=== PATIENT | female | born 1975 | race Caucasian/White ===

== ENCOUNTER 2021-08-07 20:26 | Emergency (ER) | payer MEDICAID, SELFPAY ==
[2021-08-07 20:27] VITALS: BP 160/78; PULSE 87; RESP 18; TEMP 36.6; O2SAT 98; BMI 27.4
--- NOTE | 2021-08-07 20:39 | EDS_ITS ---
HPI History of Present Illness Chief Complaint: Nausea/Vomiting Informant: patient Onset/Context/Timing Onset: Weeks Current Severity: Mild Maximum Severity: Mild Narrative Narrative: Patient presents secondary to nausea and vomiting. She states has had nausea and vomiting for the past 3 weeks. She has been at [facility] for residential treatment of drug and alcohol abuse for the past 2-1/2 weeks. She had been on Zofran but states the facility stopped giving it to her claiming it was a stimulant. She has been vomiting constantly since lunchtime. She denies focal abdominal pain but she does states her abdomen feels nauseous. [facility] Medical History COPD (chronic obstructive pulmonary disease) Home Medications cariprazine [Vraylar] 4.5 mg PO DAILY 08/07/21 [History Last Taken Unknown] lamotrigine 100 mg PO BID 08/07/21 [History Last Taken Unknown] ondansetron 4 mg PO Q8H PRN #10 tab 08/07/21 [Rx Last Taken Unknown] trazodone 100 mg PO QHS 08/07/21 [History Last Taken Unknown] vortioxetine [Trintellix] 10 mg PO DAILY 08/07/21 [History Last Taken Unknown] Allergy/AdvReac Type Severity Reaction Status Date / Time prochlorperazine AdvReac Other Verified 08/07/21 20:30 [From Compazine] Surgical History Tubal ligation status Social History Smoking Status: Current every day smoker tobacco type: cigarettes ROS ROS ED Constitutional Constitutional ED: Denies chills or fever(s) Eyes Eyes: Denies change in vision ENT ENT ED: Denies sore throat Cardiovascular Cardiovascular: Denies chest pain Respiratory/Chest Respiratory/Chest: Denies cough or dyspnea Gastrointestinal Gastrointestinal: Reports nausea and vomiting; Denies abdominal pain or diarrhea Genitourinary Genitourinary ED: Denies dysuria Musculoskeletal Musculoskeletal: Denies back pain Integumentary Denies rash Neurologic Neurologic: Denies headache(s) or weakness Allergic/Immunologic Allergic/Immunologic ED: Denies urticaria EXAM Physical Exam Const Vital Signs: 08/07/21 20:27 Temperature 97.9 F Temperature Source Temporal Pulse Rate 87 Respiratory Rate 18 Blood Pressure 160/78 H Blood Pressure Mean 105 Pulse Ox 98 Oxygen Delivery Method Room Air Positive well nourished and well developed General Appearance ED: well developed HEENT Reports moist mucous membranes Eyes PERRL and EOMs intact bilaterally Neck supple Chest Wall inspection of chest normal and palpation of chest normal Resp normal respiratory effort and clear to auscultation bilaterally Cardio regular rate and regular rhythm GI non-tender Auscultation: hypoactive bowel sounds Palpation: soft Extremity normal to inspection Neuro oriented x3 Sensorium / Orientation: alert Psych mental status grossly normal Skin no rashes or lesions noted MDM MDM MDM Narrative Medical decision making narrative: Patient is given IV fluids and Zofran. Lab work obtained. Lab Data Attestation: I reviewed the patient's lab results. Labs: Laboratory Results - last 24 hr 08/07/21 08/07/21 08/07/21 20:48 20:48 20:48 WBC 10.4 RBC 4.98 Hgb 14.9 Hct 44.2 MCV 88.8 MCH 29.9 MCHC 33.7 RDW Std Deviation 43.4 RDW Coeff of Neha 13.3 Plt Count 273 MPV 9.0 Immature Gran % (Auto) 0.400 Neut % (Auto) 71.1 H Lymph % (Auto) 19.5 [place] % (Auto) 6.8 Eos % (Auto) 1.8 Baso % (Auto) 0.4 Absolute Neuts (auto) 7.4 Absolute Lymphs (auto) 2.02 Nucleated RBC % 0 Sodium 140 Potassium 4.1 Chloride 105 Carbon Dioxide 30.0 Anion Gap 5 BUN 10 Creatinine 1.02 Estim Creat Clear Calc 53.93 Est GFR (MDRD) Af Amer 74 Est GFR (MDRD) Non-Af 62 BUN/Creatinine Ratio 9.8 L Glucose 126 H Calcium 9.7 Total Bilirubin 0.40 Direct Bilirubin 0.12 AST 14 L ALT 23 Alkaline Phosphatase 93 Total Protein 7.5 Albumin 3.8 Globulin 3.7 Lipase 303 Serum , Qual NEGATIVE Treatment and Re-Evaluation Narrative: Lab work is unremarkable including normal LFTs and lipase. test negative. On repeat evaluation patient is feeling significantly improved and drinking a can of Coke. I attempted to contact patient navigator at 180 to determine why patient was not able to have Zofran. No one is calling me back. I agree that this would probably be the best medication for her to control her symptoms. I will write her prescription for Zofran. She understands that they may or may not let her take it at the facility. I did advise her that her body is currently going through a lot of changes right now with the detox program. This may just be an effect of all the changes that she is going through. If she continues to have symptoms as her detox progresses she may need to see GI specialist. Discharge Plan Triage Chief Complaint: Nausea/Vomiting ED Provider: Lizzeth Oneal Dx/Rx/DC Orders Clinical Impression: Nausea & vomiting Instructions: ED Vomiting (Adult) Prescriptions: New ondansetron 4 mg tablet,disintegrating 4 mg PO Q8H PRN (Reason: nausea and vomiting) Qty: 10 RF: 0 No Action trazodone 100 mg tablet 100 mg PO QHS RF: 0 lamotrigine 100 mg tablet 100 mg PO BID RF: 0 Trintellix 10 mg Tablet 10 mg PO DAILY RF: 0 Vraylar 4.5 mg Capsule 4.5 mg PO DAILY RF: 0 Disposition Disposition: Home, Self Care
[2021-08-07] MEDS: 0.9% Normal Saline 1,000 ML 1000 ML IV (20:48)
[2021-08-07] MEDS: Ondansetron 4 MG/2 ML Vial IV (20:48)
[2021-08-07 20:54] LABS: Absolute Lymphocyte Count 2.02 X10^3/uL (0.83-4.51); Absolute Neutrophil Count 7.4 X10^3/uL (2.0-7.7); Basophil# 0.04 X10^3/uL; Basophil% 0.4 % (0-1); Eosinophil# 0.19 X10^3/uL; Eosinophils% 1.8 % (0-5); Hematocrit 44.2 % (37-47); Hemoglobin 14.9 g/dL (12.0-15.0); Lymphocyte # 2.02 X10^3/ul (0.83-4.51); Lymphocyte % 19.5 % (19-41); Mean Corp Hgb Conc 33.7 g/dL (32-36); Mean Corpuscular Hgb 29.9 pg (27.0-32.0); Mean Corpuscular Volume 88.8 fL (81-99); Monocyte% 6.8 % (0-10); NRBC Flagged by Analyzer 0 % (0-5); Neutrophil # 7.36 X10^3/uL (2.7-7.7); Neutrophil % 71.1 % (47-70); Platelet Count 273 K/mm3 (150-450); RBC Distribution Width CV 13.3 % (11.6-14.6); RBC Distribution Width SD 43.4 fl (35.1-43.9); Red Blood Count 4.98 M/mm3 (4.2-5.4); White Blood Count 10.4 K/mm3 (4.4-11.0)
[2021-08-07 21:14] LABS: Internal QC Validated? YES +Cl - CLEAR BKGD; Pregnancy, Serum, hCG Quali. NEGATIVE Negative
[2021-08-07 21:21] LABS: AST(SGOT) 14 U/L (15-37); Alanine Aminotransfer ALT/SGPT 23 U/L (13-56); Albumin, Serum 3.8 g/dL (3.2-5.0); Alkaline Phosphatase 93 U/L (45-117); Anion Gap 5 (5-15); BUN 10 mg/dL (7-18); BUN/Creat Ratio 9.8 RATIO (10-20); Bilirubin, Direct 0.12 mg/dL (0.00-0.30); Calcium,Total 9.7 mg/dL (8.5-10.1); Chloride 105 mmol/L (98-107); Creatinine, Serum 1.02 mg/dL (0.55-1.02); EST Glomerular Filtration Rate 62 mL/min (>60); Est Glom Filt Rate - Afr Amer 74 mL/min (>60); Estimated Creatinine Clearance 53.93 ml/min; Globulin 3.7 g/dL (2.2-4.2); Glucose 126 mg/dL (74-106); Lipase 303 U/L (73-393); Potassium 4.1 mmol/L (3.5-5.1); Protein, Total 7.5 g/dL (6.4-8.2); Sodium Level 140 mmol/L (136-145)
[2021-08-07 22:20] VITALS: RESP 16
--- NOTE | 2021-08-07 23:03 | ED.RN ---
patient ready for discharge, multiple attempts made to contact [facility] staff with phone number that they gave the patient when she left to come to ED. Message left. Patient does no know any other numbers for staff. Attempt to call [facility] by Olivia, unable to reach staff. [employer] able to get ahold of [facility] full time staff interpreter who will come to transport patient back to [facility].
== END 2021-08-07 23:07 | disposition home or self-care (01) ==
PROVIDERS: Emergency Provider Emergency Medicine; Visit Provider Emergency Medicine
DX: R11.2 Nausea with vomiting, unspecified (principal); J44.9 Chronic obstructive pulmonary disease, unspecified; F19.10 Other psychoactive substance abuse, uncomplicated; F10.10 Alcohol abuse, uncomplicated; F17.210 Nicotine dependence, cigarettes, uncomplicated
CPT/HCPCS: 80048; 80076; 83690; 84703; 85025; 96361; 96374; 99284; J7030; A4216; J2405

== ENCOUNTER 2021-08-18 20:18 | Emergency (ER) | payer MEDICAID, SELFPAY ==
[2021-08-18 20:19] VITALS: BP 147/74; PULSE 99; RESP 15; TEMP 36.4; O2SAT 7; BMI 28.3
--- NOTE | 2021-08-18 20:53 | EDS_ITS ---
HPI History of Present Illness Chief Complaint: Nausea/Vomiting [facility] Medical History (Updated 08/18/21 @ 20:29 by Amanda Pollock) COPD (chronic obstructive pulmonary disease) Drug abuse and dependence Home Medications cariprazine 4.5 mg capsule (Vraylar) 4.5 mg PO DAILY 08/07/21 [History Last Taken Unknown] lamotrigine 100 mg tablet 100 mg PO BID 08/07/21 [History Last Taken Unknown] trazodone 100 mg tablet 100 mg PO QHS 08/07/21 [History Last Taken Unknown] vortioxetine 10 mg tablet (Trintellix) 10 mg PO DAILY 08/07/21 [History Last Taken Unknown] omeprazole 10 mg capsule,delayed release 10 mg PO DAILY 08/18/21 [History Last Taken Unknown] Allergy/AdvReac Type Severity Reaction Status Date / Time prochlorperazine AdvReac Other Verified 08/18/21 20:22 [From Compazine] Sulfa (Sulfonamide AdvReac Rash Verified 08/18/21 20:22 Antibiotics) Surgical History Tubal ligation status Social History Smoking Status: Current every day smoker tobacco type: cigarettes EXAM Physical Exam Const Vital Signs: 08/18/21 20:19 Temperature 97.6 F L Temperature Source Temporal Pulse Rate 99 Respiratory Rate 15 Blood Pressure 147/74 H Blood Pressure Mean 98 Pulse Ox 7 Oxygen Delivery Method Room Air Discharge Plan Triage Chief Complaint: Nausea/Vomiting ED Provider: Aldo Gr Dx/Rx/DC Orders Prescriptions: No Action trazodone 100 mg tablet 100 mg PO QHS lamotrigine 100 mg tablet 100 mg PO BID Trintellix 10 mg Tablet 10 mg PO DAILY Vraylar 4.5 mg Capsule 4.5 mg PO DAILY omeprazole 10 mg capsule,delayed release(DR/EC) 10 mg PO DAILY Primary Care Provider: Care Physician,Nicol Primary
--- NOTE | 2021-08-18 21:07 | ED.VIS.GI ---
HPI HPI - GI History of Present Illness Chief Complaint: Nausea/Vomiting Informant: patient Abdominal Pain/Flank Pain Onset: Weeks Context: Gradual Onset Timing: Intermittent Current Severity: Mild Maximum Severity: Mild Worsened by: Nothing Relieved by: Nothing Nausea/Vomiting/Emesis GI Symptom: Positive for Nausea and Vomiting Onset: Weeks Severity: Mild Diarrhea/Melena/Hematochezia GI Symptom: Negative for Diarrhea, Melena or Hematochezia Associated Symptoms Associated Symptoms: Negative for Dysuria, Frequency, Hematuria or Urgency Narrative Prior similar symptoms: No Recent Illness/Hospitalization: No PFSH PFSH Medical History COPD (chronic obstructive pulmonary disease) Drug abuse and dependence Home Medications cariprazine 4.5 mg capsule (Vraylar) 4.5 mg PO DAILY 08/07/21 [History Last Taken Unknown] lamotrigine 100 mg tablet 100 mg PO BID 08/07/21 [History Last Taken Unknown] trazodone 100 mg tablet 100 mg PO QHS 08/07/21 [History Last Taken Unknown] vortioxetine 10 mg tablet (Trintellix) 10 mg PO DAILY 08/07/21 [History Last Taken Unknown] omeprazole 10 mg capsule,delayed release 10 mg PO DAILY 08/18/21 [History Last Taken Unknown] ondansetron 4 mg disintegrating tablet 4 mg PO Q6H PRN nausea and vomiting #14 tabs 08/18/21 [Rx Last Taken Unknown] Allergy/AdvReac Type Severity Reaction Status Date / Time prochlorperazine AdvReac Other Verified 08/18/21 20:22 [From Compazine] Sulfa (Sulfonamide AdvReac Rash Verified 08/18/21 20:22 Antibiotics) Surgical History Tubal ligation status Social History Smoking Status: Current every day smoker tobacco type: cigarettes ROS ROS ED ROS Narrative Nausea and vomiting. Review of Systems ROS Unobtainable: Denies due to encephalopathy Constitutional Constitutional ED: Denies chills ENT ENT ED: Denies ear pain Cardiovascular Cardiovascular: Denies chest pain Respiratory/Chest Respiratory/Chest: Denies cough or dyspnea Gastrointestinal Gastrointestinal: Reports nausea and vomiting; Denies abdominal pain, constipation, diarrhea or melena Genitourinary Genitourinary ED: Denies dysuria Musculoskeletal Musculoskeletal: Denies arthralgias Integumentary Denies abscess Neurologic Neurologic: Denies headache(s) Psychiatric Psychiatric: Denies anxiety Endocrine Endocrinology: Denies polydipsia Hematologic/Lymphatic Hematologic/Lymphatic: Denies easy bleeding Allergic/Immunologic Allergic/Immunologic ED: Denies mouth swelling EXAM Physical Exam Narrative Exam Narrative: -year-old female no acute distress vital signs stable afebrile. H EENT exam unremarkable. Moist use membranes. Lungs clear to auscultation. Heart regular rate rhythm rate about 95 no murmur. Chest wall nontender. Abdomen soft nontender. Normal bowel sounds no peritoneal signs. Moving all 4 extremities. Calves are nontender without edema or cords. Neurologically she is awake and alert. Const Vital Signs: 08/18/21 20:19 Temperature 97.6 F L Temperature Source Temporal Pulse Rate 99 Respiratory Rate 15 Blood Pressure 147/74 H Blood Pressure Mean 98 Pulse Ox 7 Oxygen Delivery Method Room Air Positive well nourished, well developed and obese; Negative for cachectic, contractures or unkempt General Appearance ED: well developed; Negative for unkempt, cachectic, contractures or pallor Nutritional Appearance: obese; Negative for cachectic HEENT Reports moist mucous membranes normocephalic and atraumatic; Negative for trauma or tenderness Eyes PERRL and EOMs intact bilaterally General Eye ED: Negative for pale conjunctiva or scleral icterus Neck no lymphadenopathy, supple and no JVD General: Negative for tenderness Resp normal respiratory effort and clear to auscultation bilaterally Effort and Inspection: Negative for respiratory distress Auscultation: Negative for rales, rhonchi or wheezes Cardio regular rate, regular rhythm, S1 normal heart sound and S2 normal heart sound GI non-tender, non-distended and no masses Inspection: Negative for abdominal distention Auscultation: normoactive bowel sounds; Negative for hyperactive bowel sounds or hypoactive bowel sounds Palpation: soft; Negative for tender, guarding, rigid, hepatomegaly, splenomegaly, hernia or mass Back/Spine no CVA tenderness General Back: Negative for CVA tenderness Cervical Spine: Negative for cervical spine tenderness Thoracic Spine / Upper Back: Negative for thoracic spinal tenderness Lumbar Spine / Lower Back: Negative for lumbar spinal tenderness Extremity full ROM General Extremety ED: Negative for edema or tenderness General Extremity: Negative for edema Neuro CN's II-XII intact bilaterally and moves all extremities Sensorium / Orientation: alert, oriented to person, oriented to place and oriented to time; Negative for orientation impaired, confused, lethargic or stuporous Motor Exam: strength 5/5 throughout; Negative for general weakness Psych mental status grossly normal and thought process normal Appearance: Negative for unkempt Skin no wounds General Skin Exam: Negative for jaundice or pallor Lesions: no lesions Rashes: no rashes Trauma: Negative for abrasion Nails: Negative for discolored MDM MDM MDM Narrative Medical decision making narrative: 45-year-old female with nausea vomiting for a month. She denies marijuana abuse now but has a drug abuse history in the past. This is probably marijuana induced nausea and vomiting. She be treated with IV fluids. IV Zofran. P.o. fluid challenge. And her electrolytes to be checked. Clinically she looks well. Repeat exam patient doing well. She will be discharged home with prescription for Zofran. Lab Data Attestation: I reviewed the patient's lab results. Lab results narrative: Chemistries unremarkable. Gap of 5. Normal BUN of 12 creatinine 0.9. Glucose 118. Labs: Laboratory Results - last 24 hr 08/18/21 21:35 Sodium 140 Potassium 4.0 Chloride 107 Carbon Dioxide 28.0 Anion Gap 5 BUN 12 Creatinine 0.98 Estim Creat Clear Calc 56.13 Est GFR (MDRD) Af Amer 78 Est GFR (MDRD) Non-Af 64 BUN/Creatinine Ratio 12.2 Glucose 118 H Calcium 9.5 Discharge Plan Triage Chief Complaint: Nausea/Vomiting ED Provider: Aldo Gr Dx/Rx/DC Orders Clinical Impression: Vomiting Instructions: ED Vomiting (Adult) Prescriptions: New ondansetron 4 mg tablet,disintegrating 4 mg PO Q6H PRN (Reason: nausea and vomiting) Qty: 14 0RF No Action trazodone 100 mg tablet 100 mg PO QHS lamotrigine 100 mg tablet 100 mg PO BID Trintellix 10 mg Tablet 10 mg PO DAILY Vraylar 4.5 mg Capsule 4.5 mg PO DAILY omeprazole 10 mg capsule,delayed release(DR/EC) 10 mg PO DAILY Primary Care Provider: Care Physician,No Primary Referrals: Esdras Reed MD [NON-STAFF] - 3-5 Days if not improving Care Physician,No Primary [Primary Care Provider] - Activity Restrictions/Additional Instructions: Plenty of fluids and rest. Follow-up with your primary care physician. Zofran as needed for nausea. Disposition Disposition: Home, Self Care
[2021-08-18] MEDS: Ondansetron 4 MG/2 ML Vial IV (21:34)
[2021-08-18] MEDS: 0.9% Normal Saline 1,000 ML 1000 ML IV (21:35)
[2021-08-18 22:06] LABS: Anion Gap 5 (5-15); BUN 12 mg/dL (7-18); BUN/Creat Ratio 12.2 RATIO (10-20); Calcium,Total 9.5 mg/dL (8.5-10.1); Chloride 107 mmol/L (98-107); Creatinine, Serum 0.98 mg/dL (0.55-1.02); EST Glomerular Filtration Rate 64 mL/min (>60); Est Glom Filt Rate - Afr Amer 78 mL/min (>60); Estimated Creatinine Clearance 56.13 ml/min; Glucose 118 mg/dL (74-106); Sodium Level 140 mmol/L (136-145)
[2021-08-18 22:29] VITALS: BP 115/75; PULSE 77; RESP 15; O2SAT 98
== END 2021-08-18 23:00 | disposition home or self-care (01) ==
PROVIDERS: Emergency Provider Emergency Medicine; Visit Provider Emergency Medicine
DX: R11.2 Nausea with vomiting, unspecified (principal); J44.9 Chronic obstructive pulmonary disease, unspecified; R10.9 Unspecified abdominal pain; E66.9 Obesity, unspecified; F17.210 Nicotine dependence, cigarettes, uncomplicated; Z79.899 Other long term (current) drug therapy
CPT/HCPCS: 80048; 96361; 96374; 99282; J7030; A4216; J2405

== ENCOUNTER 2022-02-22 12:34 | Emergency (ER) | payer MEDICAID, SELFPAY ==
[2022-02-22 12:35] VITALS: BP 146/85; PULSE 81; RESP 15; TEMP 35.8; O2SAT 98; BMI 27.4
[2022-02-22 12:37] VITALS: RESP 16
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
--- NOTE | 2022-02-22 13:14 | NURSING ---
CALLED [facility]. TALKED TO MARISOL. [phone] RESULTS AND SUMMARY
[2022-02-22] MEDS: Acetaminophen 500 MG Tablet 1000 MG PO (13:41)
[2022-02-22] MEDS: hydrOXYzine PAM 25 MG Capsule PO (13:41)
[2022-02-22 14:29] VITALS: BP 112/88; PULSE 88; RESP 15; O2SAT 98
== END 2022-02-22 14:29 | disposition home or self-care (01) ==
PROVIDERS: Emergency Provider Emergency Medicine; PCP Family Medicine; Visit Provider Emergency Medicine
DX: S30.1XXA Contusion of abdominal wall, initial encounter (principal); S20.20XA Contusion of thorax, unspecified, initial encounter; F17.210 Nicotine dependence, cigarettes, uncomplicated; F41.9 Anxiety disorder, unspecified; V89.0XXA Person injured in unspecified motor-vehicle accident, nontraffic, initial encounter
CPT/HCPCS: 99283

== ENCOUNTER 2024-09-22 13:12 | Emergency (ER) | payer MEDICAID, SELFPAY ==
[2024-09-22 13:12] VITALS: BP 115/84; PULSE 72; RESP 18; TEMP 35.9; O2SAT 98
[2024-09-22 13:34] VITALS: BMI 28.0
--- NOTE | 2024-09-22 13:40 | RAD_ITS ---
EXAM: XR Left Foot Complete, 3 or More Views CLINICAL INDICATION: INJURY/PAIN TECHNIQUE: Frontal, lateral and oblique views of the left foot. COMPARISON: No relevant prior studies available. FINDINGS: BONES/JOINTS: See below. SOFT TISSUES: Soft tissue swelling without acute fracture. RAD/Foot min 3 Views IMPRESSION: 1. Soft tissue swelling without acute fracture. 2. If symptoms persist, further evaluation with CT is recommended. Reading Location: [facility]
--- NOTE | 2024-09-22 13:58 | EDS_ITS ---
HPI History of Present Illness Chief Complaint: Lower Extremity Injury Detail of Chief Complaint: Posterior lateral left ankle/heel pain Informant: patient Onset/Context/Timing Onset: Weeks (2 weeks) Quality: Pain Location: Posterior the left lateral malleolus since Current Severity: Mild Maximum Severity: Moderate Worsened by: Movement and walking Relieved by: Nothing Associated Symptoms Associated Symptoms: None Narrative Narrative: Patient presents with pain left ankle for the past 2 weeks. She is uncertain whether she had any type of twisting injury. She is on Plavix. She has been taking ibuprofen. She was told she should not be taking NSAIDs on Plavix because of potential interaction and potential for increased GI bleed. Prior similar symptoms: No Recent Illness/Hospitalization: No PFSH [facility] Medical History Depression Anxiety Vision problems History of pneumonia History of fracture Anemia Drug abuse and dependence COPD (chronic obstructive pulmonary disease) Home Medications ?Medication ?Instructions ?Recorded ?Last Taken ?Type cariprazine 4.5 mg capsule 4.5 mg PO DAILY 08/07/21 Un known History (Vraylar) lamotrigine 100 mg tablet 100 mg PO BID 08/07/21 Unkno wn History trazodone 100 mg tablet 100 mg PO QHS 08/07/21 Unkno wn History prazosin 1 mg capsule (Minipress) 1 mg PO QHS 08/29/21 Unknown History aspirin 81 mg chewable tablet 1 tab PO DAILY 09/22/24 Unknown History clopidogrel 75 mg tablet 75 mg PO DAILY 09/22/24 Unkn own History naltrexone 50 mg tablet 50 mg PO DAILY 09/22/24 Unkn own History pravastatin 40 mg tablet 40 mg PO DAILY 09/22/24 Unkn own History prazosin 2 mg capsule 4 mg PO QHS nightmares 09/22 Unknown History vortioxetine 20 mg tablet 20 mg PO DAILY 09/22/24 Unkn own History (Trintellix) Allergy/AdvReac Type Severity Reaction Status Date / Time prochlorperazine (From AdvReac Other Verified 09/22/24 13:12 Compazine) Sulfa (Sulfonamide AdvReac Rash Verified 09/22/24 13:12 Antibiotics) Family History Other Alcoholism Anxiety Asthma CVA (cerebral vascular accident) Depression Diabetes Hyperlipemia Hypertension Myocardial infarction Psychiatric care Thyroid disorder Surgical History Tubal ligation status Social History Smoking Status: Light Smoker (<10/day) alcohol intake: current Alcohol type: hard liquor substance use type: crack/cocaine what type of physical activity do you participate in: none ROS ROS ED Musculoskeletal Musculoskeletal: Denies arthralgias or myalgias Neurologic Neurologic: Denies paresthesias or weakness Hematologic/Lymphatic Hematologic/Lymphatic: Reports systems reviewed and no addt'l complaints, except as documented; Denies easy bleeding or easy bruising EXAM Physical Exam Const Vital Signs: 09/22/24 13:12 Temperature 96.7 F L Temperature Source Temporal Pulse Rate 72 Respiratory Rate 18 Blood Pressure 115/84 H Blood Pressure Mean 94 Pulse Ox 98 Positive well nourished and well developed General Appearance ED: well developed and NAD; Negative for pallor HEENT HEENT Narrative: HEENT is grossly unremarkable Eyes PERRL and EOMs intact bilaterally General Eye ED: Negative for pale conjunctiva or scleral icterus Resp normal respiratory effort Cardio regular rate and regular rhythm Extremity Extremity Narrative: There is no pain the patient over the lateral medial malleolus. There is pain where the Achilles inserts into the calcaneus. There is pain ovation of the calcaneus. There is pain the patient over the posterior talofibular ligament. There is some swelling noted compared to the unaffected side. DP and PT pulse are 2+ and symmetric. There is no pain to palpation at the base of the fifth metatarsal. Suspect patient has a strain of the posterior talofibular movement. Will obtain x-ray to evaluate for poitr fracture. Neuro oriented x3 and CN's II-XII intact bilaterally Sensorium / Orientation: alert Psych mental status grossly normal Skin no rashes or lesions noted, no wounds and skin turgor normal General Skin Exam: elasticity normal; Negative for jaundice or pallor MDM MDM MDM Narrative Medical decision making narrative: X-ray was obtained to evaluate for piotr fracture versus sprain. Radiography Chest X-Ray - ED: Read by ED Physician (Three-view x-ray of the foot reveals no fracture, subluxation dislocation.) Discharge Plan Triage Chief Complaint: Lower Extremity Injury ED Provider: Miguel Dorado Dx/Rx/DC Orders Clinical Impression: Sprain of posterior talofibular ligament of left ankle, Hx of hyperlipidemia, History of anxiety Instructions: Ankle Inversion (Strength), ED Ankle Sprain (Adult) Prescriptions: No Action prazosin [Minipress] 1 mg capsule 1 mg PO QHS trazodone 100 mg tablet 100 mg PO QHS lamotrigine 100 mg tablet 100 mg PO BID Vraylar 4.5 mg Capsule 4.5 mg PO DAILY pravastatin 40 mg tablet 40 mg PO DAILY naltrexone 50 mg tablet 50 mg PO DAILY clopidogrel 75 mg tablet 75 mg PO DAILY aspirin 81 mg tablet,chewable 1 tab PO DAILY prazosin 2 mg capsule 4 mg PO QHS Trintellix 20 mg tablet 20 mg PO DAILY Primary Care Provider: Ridge Razo Referrals: Marii Li MD [Non-Staff] - 1 Week if not improving Activity Restrictions/Additional Instructions: 1. Do strengthening exercises as noted on home-going instructions 2. Apply ice 6-10 times a day Print Language: Yi Disposition Disposition: Home, Self Care
[2024-09-22 14:06] VITALS: BP 110/70; PULSE 78; RESP 12; TEMP 36.8; O2SAT 100
== END 2024-09-22 14:11 | disposition home or self-care (01) ==
PROVIDERS: Emergency Provider Emergency Medicine; PCP Family Medicine; Visit Provider Emergency Medicine
DX: S93.492A Sprain of other ligament of left ankle, initial encounter (principal); J44.9 Chronic obstructive pulmonary disease, unspecified; X58.XXXA Exposure to other specified factors, initial encounter; E78.5 Hyperlipidemia, unspecified; F32.A Depression, unspecified; F41.9 Anxiety disorder, unspecified; F17.200 Nicotine dependence, unspecified, uncomplicated; Z79.02 Long term (current) use of antithrombotics/antiplatelets; Z79.82 Long term (current) use of aspirin; Z79.899 Other long term (current) drug therapy
CPT/HCPCS: 73630; 99284

== ENCOUNTER 2024-11-26 12:47 | Emergency (ER) | payer MEDICAID, SELFPAY ==
[2024-11-26 12:51] VITALS: BP 122/94; PULSE 78; RESP 16; TEMP 36.8; O2SAT 98
--- NOTE | 2024-11-26 15:38 | EKG12_ITS ---
Test Reason : DIZZY Blood Pressure : */* mmHG Vent. Rate : 55 BPM Atrial Rate : 55 BPM P-R Int : 178 ms QRS Dur : 88 ms QT Int : 446 ms P-R-T Axes : 10 -19 7 degrees QTcB Int : 426 ms Sinus bradycardia Minimal voltage criteria for LVH, may be normal variant ( R in aVL ) Poor R wave progression Abnormal ECG Confirmed by Lisandro Valenzuela ([id number]), newspaper photo editor HEYDI KENNY ([id number]) on 11/28/2024 5:45:06 AM Referred By: Confirmed By: Lisandro Valenzuela
[2024-11-26 15:39] VITALS: BMI 28.8
--- NOTE | 2024-11-26 15:39 | EX.ED.DYSGE1 ---
HPI History of Present Illness Chief Complaint: Dizziness Detail of Chief Complaint: Lightheadedness, dizziness and shortness of breath. Informant: patient Onset/Context/Timing Onset: Today and Hours (Began around 8 AM after she woke up.) Timing: Intermittent Current Severity: Mild Maximum Severity: Mild Narrative Narrative: 49-year-old female history of COPD and anemia. Patient says around 8 AM this morning she woke up she had dizziness which she describes as lightheadedness. Associated nausea. Mild shortness of breath. No chest pain. No fever or chills. No cough. No leg pain or swelling. No history of DVT or PE. No recent travel, surgery immobilization. No hemoptysis. No history of cardiac disease. Prior similar symptoms: No Recent Illness/Hospitalization: No PFSH [facility] Medical History Depression Anxiety Vision problems History of pneumonia History of fracture Anemia Drug abuse and dependence COPD (chronic obstructive pulmonary disease) Home Medications ?Medication ?Instructions ?Recorded ?Last Taken ?Type cariprazine 4.5 mg capsule 4.5 mg PO DAILY 08/07/21 Unknown History (Vraylar) lamotrigine 100 mg tablet 100 mg PO BID 08/07/21 Unknown History trazodone 100 mg tablet 100 mg PO QHS 08/07/21 Unknown History prazosin 1 mg capsule (Minipress) 1 mg PO QHS 08/29/21 Unknown History aspirin 81 mg chewable tablet 1 tab PO DAILY 09/22/24 Unknown History clopidogrel 75 mg tablet 75 mg PO DAILY 09/22/24 Unknown History naltrexone 50 mg tablet 50 mg PO DAILY 09/22/24 Unknown History pravastatin 40 mg tablet 40 mg PO DAILY 09/22/24 Unknown History prazosin 2 mg capsule 4 mg PO QHS nightmares 09/22/24 Unknown History vortioxetine 20 mg tablet 20 mg PO DAILY 09/22/24 Unknown History (Trintellix) Allergy/AdvReac Type Severity Reaction Status Date / Time prochlorperazine (From AdvReac Other Verified 11/26/24 12:54 Compazine) Sulfa (Sulfonamide AdvReac Rash Verified 11/26/24 12:54 Antibiotics) Family History Other Alcoholism Anxiety Asthma CVA (cerebral vascular accident) Depression Diabetes Hyperlipemia Hypertension Myocardial infarction Psychiatric care Thyroid disorder Surgical History Tubal ligation status Social History Smoking Status: Light Smoker (<10/day) alcohol intake: current Alcohol type: hard liquor substance use type: crack/cocaine what type of physical activity do you participate in: none ROS ROS ED ROS Narrative Lightheadedness. Subjective shortness of breath. Denies recent illness. Constitutional Constitutional ED: Denies chills Eyes Eyes: Denies blurry vision ENT ENT ED: Denies ear pain, rhinorrhea or sore throat Cardiovascular Cardiovascular: Denies chest pain, palpitations or racing heartbeat Respiratory/Chest Respiratory/Chest: Reports dyspnea; Denies cough or dyspnea on exertion Gastrointestinal Gastrointestinal: Reports nausea; Denies abdominal pain, constipation, diarrhea or melena Genitourinary Genitourinary ED: Denies dysuria or hematuria Musculoskeletal Musculoskeletal: Denies arthralgias or back pain Integumentary Denies abscess or Abrasions Neurologic Neurologic: Denies headache(s) Psychiatric Psychiatric: Denies anxiety or depression Endocrine Endocrinology: Denies cold intolerance Hematologic/Lymphatic Hematologic/Lymphatic: Reports none Allergic/Immunologic Allergic/Immunologic ED: Denies mouth swelling, tongue swelling or urticaria EXAM Physical Exam Narrative Exam Narrative: Well-appearing 49-year-old female sitting upright in bed vital signs stable afebrile. No distress. Pulse ox 98% on room air no hypoxia. H EENT exam pupils round react to light. Moist mutes membranes. No facial droop. Normal speech. No trauma. Neck nontender. Back nontender. Lungs clear to auscultation bilaterally. Heart regular rhythm no murmur. Chest wall and ribs nontender. Abdomen soft nontender. Moving all 4 extremities. Calves are nontender without edema or cords. Normal electronics specialist strength. Normal dorsi plantarflexion. Equal symmetrical radial pulses. Neurologically patient awake alert. Answering questions following commands. NIH 0. No drift of either upper or lower extremities. Fingertip to nose and [id number] within normal limits. Const Vital Signs: 11/26/24 12:51 11/26/24 15:38 11/26/24 15:41 Temperature 98.2 F 97.9 F Temperature Source Oral Oral Pulse Rate 78 62 Respiratory Rate 16 12 Blood Pressure 122/94 H 125/80 H Blood Pressure Mean 103 95 Pulse Ox 98 98 Oxygen Delivery Method Room Air Room Air Room Air Positive well nourished and well developed; Negative for obese, cachectic, contractures or unkempt General Appearance ED: well developed and NAD; Negative for unkempt, cachectic, contractures, cyanotic, diaphoretic or pallor Nutritional Appearance: Negative for cachectic or obese HEENT Reports moist mucous membranes Negative for trauma or tenderness Eyes PERRL and EOMs intact bilaterally General Eye ED: Negative for pale conjunctiva or scleral icterus Neck no lymphadenopathy, supple and no JVD Chest Wall inspection of chest normal and palpation of chest normal Resp normal respiratory effort and clear to auscultation bilaterally Cardio regular rate, regular rhythm, S1 normal heart sound, S2 normal heart sound and no murmurs GI normal to inspection, nondistended, normoactive bowel sounds, non-tender and non-distended Auscultation: normoactive bowel sounds Palpation: Negative for tender, guarding, splenomegaly, mass or rebound tenderness present Back/Spine no CVA tenderness General Back: Negative for CVA tenderness Cervical Spine: Negative for cervical spine tenderness Thoracic Spine / Upper Back: Negative for thoracic spinal tenderness or paraspinal muscle tenderness Lumbar Spine / Lower Back: Negative for lumbar spinal tenderness Extremity normal to inspection General Extremety ED: Negative for edema or tenderness General Extremity: Negative for edema Neuro oriented x3 and CN's II-XII intact bilaterally Sensorium / Orientation: alert; Negative for orientation impaired, lethargic or stuporous Motor Exam: strength 5/5 throughout Psych mental status grossly normal Appearance: Negative for unkempt Skin no rashes or lesions noted, no wounds and skin turgor normal General Skin Exam: Negative for jaundice or pallor Lesions: No lesion noted Rashes: No rashes noted Trauma: Negative for abrasion Wounds: Negative for wounds noted MDM MDM MDM Narrative Medical decision making narrative: 49-year-old female with lightheadedness and subjective dyspnea. Normal exam. No wheezing. No rales or rhonchi. Normal heart rhythm and rate without murmur. She undergo cardiac workup with screening labs. Clinically I do not think this is her heart. I do not think she has pneumonia or COPD does not seem like CHF. She has no history of PE or DVT and no risk factors. Repeat exam around 6:01 PM patient doing well. We discussed all of her test results which were unremarkable. Schedule being discharged to home outpatient follow-up. History & Record Review Discussion w/independent historian: Patient Additional record(s) reviewed:: Prior inpatient record, Prior outpatient record, Prior ED visit and Prior labs Lab Data Attestation: I reviewed the patient's lab results. Lab results narrative: CBC normal. White count of 7. H&H 13 and 39. Platelets 233. BMP shows sodium 141. Gap 11. Normal BUN of 9 creatinine 0.8. Glucose 79. Troponin less than 6. Labs: Laboratory Results - last 24 hr 11/26/24 15:50 WBC 7.8 RBC 4.44 Hgb 13.6 Hct 39.6 MCV 89.2 MCH 30.6 MCHC 34.3 RDW Std Deviation 39.7 RDW Coeff of Neha 12.2 Plt Count 233 MPV 9.1 Immature Gran % (Auto) 0.400 Neut % (Auto) 56.6 Lymph % (Auto) 30.6 Platte % (Auto) 7.5 Eos % (Auto) 4.5 Baso % (Auto) 0.4 Absolute Neuts (auto) 4.4 Absolute Lymphs (auto) 2.38 Nucleated RBC % 0 Sodium 141 Potassium 3.4 Chloride 107 Carbon Dioxide 23.0 Anion Gap 11 BUN 9 Creatinine 0.87 Estim Creat Clear Calc 70.60 Est GFR (MDRD) Non-Af 80 BUN/Creatinine Ratio 9.9 L Glucose 79 Calcium 8.7 Troponin T High Sens < 6 Radiography Chest X-Ray - ED: 2 View, Read by ED Physician, Normal, Heart, Lungs, Mediastinum, Bony Structures, No Acute Disease and Chronic Changes Diagnostic Testing: Clinical Impression(s) from Imaging Studies Chest X-Ray 11/26/24 16:07 IMPRESSION: No acute cardiopulmonary abnormality. Reading Location: [id number] Chest x-ray, 2 views, AP and lateral, interpreted by myself of the right neurologist. Normal cardiac silhouette. Normal lung goodrich. No acute process. Chronic changes. Rhythm Strip Rhythm Strip: Sinus bradycardia Rate: 55 Ectopy: None EKG Initial EKG: Attestation: I personally reviewed and interpreted this EKG as follows: Interpretation: No Acute Injury Pattern and Sinus Bradycardia Comments: Sinus bradycardia rate of 55 no acute signs of CA or ischemia. Discharge Plan Triage Chief Complaint: Dizziness ED Provider: Aldo Gr Dx/Rx/DC Orders Clinical Impression: Light-headedness Instructions: ED Dizziness, Uncertain Cause Prescriptions: No Action prazosin [Minipress] 1 mg capsule 1 mg PO QHS trazodone 100 mg tablet 100 mg PO QHS lamotrigine 100 mg tablet 100 mg PO BID Vraylar 4.5 mg Capsule 4.5 mg PO DAILY pravastatin 40 mg tablet 40 mg PO DAILY naltrexone 50 mg tablet 50 mg PO DAILY clopidogrel 75 mg tablet 75 mg PO DAILY aspirin 81 mg tablet,chewable 1 tab PO DAILY prazosin 2 mg capsule 4 mg PO QHS Trintellix 20 mg tablet 20 mg PO DAILY Primary Care Provider: Ridge Razo Referrals: Ridge Razo MD [Primary Care Provider, Family Practice] - 3-5 Days Activity Restrictions/Additional Instructions: Your EKG, chest x-ray and labs are unremarkable. I do not have a specific cause for your symptoms. Follow-up with your doctor if not improving. Return if you are feeling worse. Print Language: Maldivian Disposition Disposition: Home, Self Care
[2024-11-26 15:41] VITALS: BP 125/80; PULSE 62; RESP 12; TEMP 36.6; O2SAT 98
[2024-11-26 16:03] LABS: Hematocrit 39.6 % (37-47); Hemoglobin 13.6 g/dL (12.0-15.0); Immature Granulocytes Count 0.030 X10^3/uL (0.0-0.0); Mean Corp Hgb Conc 34.3 g/dL (32-36); Mean Corpuscular Volume 89.2 fL (81-99); Mean Platelet Vol. 9.1 fl (6.2-12.0); NRBC Flagged by Analyzer 0 % (0-5); Platelet Count 233 K/mm3 (150-450); RBC Distribution Width CV 12.2 % (11.6-14.6); RBC Distribution Width SD 39.7 fl (35.1-43.9); Red Blood Count 4.44 M/mm3 (4.2-5.4); White Blood Count 7.8 K/mm3 (4.4-11.0)
--- NOTE | 2024-11-26 16:07 | RAD_ITS ---
PROCEDURE: CHEST PA AND LATERAL 11/26/2024 REASON FOR EXAM: CHEST PAIN TECHNIQUE: Procedure Code: RADCXR Modality: DX Procedure: CHEST PA AND LATERAL COMPARISON: None FINDINGS: Hardware: Electrodes overlying chest wall. Heart: Heart size is mildly enlarged. Mediastinum: The mediastinal contour is unremarkable. Lungs: Bibasilar atelectasis Bones: Degenerative changes are identified within the thoracic spine. RAD/Chest PA and Lateral IMPRESSION: No acute cardiopulmonary abnormality. Reading Location: [id number]
[2024-11-26 16:43] VITALS: O2SAT 99
[2024-11-26 17:06] LABS: Anion Gap 11 (5-15); BUN 9 mg/dL (4-19); BUN/Creat Ratio 9.9 RATIO (10-20); Calcium,Total 8.7 mg/dL (7.6-11.0); Carbon Dioxide 23.0 mmol/L (21.0-32.0); Chloride 107 mmol/L (98-108); Estimated Creatinine Clearance 70.60 ml/min (50-250); Glucose 79 mg/dL (70-99); Potassium 3.4 mmol/L (3.3-5.1)
[2024-11-26 17:11] LABS: Troponin T High Sensitivity < 6 ng/L (<=14)
[2024-11-26 18:08] VITALS: BP 141/74; PULSE 80; RESP 14; TEMP 36.6; O2SAT 99
== END 2024-11-26 18:10 | disposition home or self-care (01) ==
PROVIDERS: Emergency Provider Emergency Medicine; PCP Family Medicine; Visit Provider Emergency Medicine
DX: R42 Dizziness and giddiness (principal); J44.9 Chronic obstructive pulmonary disease, unspecified; R11.0 Nausea; D64.9 Anemia, unspecified; F17.200 Nicotine dependence, unspecified, uncomplicated; Z79.82 Long term (current) use of aspirin; Z79.02 Long term (current) use of antithrombotics/antiplatelets; Z79.899 Other long term (current) drug therapy
CPT/HCPCS: 71046; 80048; 84484; 85025; 93005; 99285